=== PATIENT | female | born 1995 | race Caucasian/White ===

== ENCOUNTER 2016-08-28 21:58 | Emergency (ER) | payer MEDICAID ==
[~2016-08-28] VITALS: Ht 160 cm; Wt 88.5 kg
[2016-08-28 22:04] VITALS: BP 127/89
--- NOTE | 2016-08-29 05:32 | NUR ---
Patient ambulated to bed 04.
--- NOTE | 2016-08-29 05:55 | NUR ---
21 Y/O F W/C/O HIGH GLUCOSE OF 400 AT HOME X TODAY. PT STATES IS DIABETIC AND TAKES METFORMING 1000MG. SHE ALSO C/O HEADACHES X 1 WK. ER AWARE.
--- NOTE | 2016-08-29 06:20 | NUR ---
PT RESTING IN BED, VSS. NO S/S OF DISTRESS NOTED AT THE MOMENT. WILL CONT TO MONITOR.
--- NOTE | 2016-08-29 07:21 | NUR ---
Pt report given to ROSA ADAM. Transfer of care at this time.
[2016-08-29 07:28] LABS: BASOPHILS # (AUTO) 0.2 K/uL (0.00-0.22); BASOPHILS % (AUTO) 2.3 % (0.0-2.0); EOSINOPHILS # (AUTO) 0.2 K/uL (0-0.4); EOSINOPHILS % (AUTO) 2.8 % (0.0-4.0); HEMATOCRIT 40.8 % (36-48); HEMOGLOBIN 13.4 g/dL (12.0-16.0); LYMPHOCYTES # (AUTO) 3.7 K/uL (2.5-16.5); LYMPHOCYTES % (AUTO) 42.5 % (20.5-51.1); MEAN CORPUSCULAR HEMOGLOBIN 30 pg (27-31); MEAN CORPUSCULAR HGB CONC 33 g/dL (33-37); MEAN CORPUSCULAR VOLUME 90 fL (80-94); MONOCYTES # (AUTO) 0.4 K/uL (0.8-1.0); MONOCYTES % (AUTO) 4.5 % (1.7-9.3); NEUTROPHILS # (AUTO) 4.3 K/uL (1.8-7.7); NEUTROPHILS % (AUTO) 47.9 % (42.2-75.2); PLATELET COUNT (AUTO) 327 K/uL (140-450); RED BLOOD CELL COUNT(AUTO) 4.55 MIL/uL (4.20-5.40); RED CELL DISTRIBUTION WIDTH 12.3 % (11.6-13.7); WHITE BLOOD COUNT (AUTO) 8.8 K/uL (4.8-10.8)
[2016-08-29] MEDS ORDERED: NACL 0.9% 2,000 ML IV ONE (07:35)
[2016-08-29] MEDS ORDERED: INSULIN HUMAN REGULAR 100 UNITS/ML 10 ML VIAL IVP ONE ×2 (07:35)
--- NOTE | 2016-08-29 08:23 | NUR ---
AAO PT NO C/O PAIN, NO ACUTE DISTRESS NOTED AT THIS TIME, WILL CONTINUE TO MONITOR
[2016-08-29 08:51] LABS: APPEARANCE,URINE CLEAR (CLEAR); BILIRUBIN,URINE NEGATIVE (NEGATIVE); BLOOD, URINE NEGATIVE (NEGATIVE); COLOR,URINE YELLOW (YELLOW); LEUKOCYTE ESTERASE ,URINE NEGATIVE (NEGATIVE); NITRITE, URINE NEGATIVE (NEGATIVE); PH,URINE 5.5 (5.0-9.0); PROTEIN,URINE NEGATIVE (NEGATIVE); UGLUCOSE 3+ (NEGATIVE); UROBILINOGEN,URINE 0.2 EU/dL (0.2 - 1)
[2016-08-29 08:54] LABS: BACTERIA,URINE OCCASSIONAL /HPF (None Seen); RBC,URINE 0-2 /HPF (0-5); SQUAMOUS EPITHELIAL CELL,UR 0-3 (FEW) /LPF (0-3 (FEW)); WBC,URINE 0-2 /HPF (0-5)
[2016-08-29 08:58] LABS: ANION GAP 15.6 (8-16); CALCIUM 9.3 mg/dL (8.5-10.1); CARBON DIOXIDE 26.4 mmol/L (21-32); CREATININE 0.8 mg/dL (0.6-1.3)
[2016-08-29 09:05] LABS: TOTAL BILIRUBIN 0.5 mg/dL (0.0-1.0)
[2016-08-29 09:06] LABS: ALBUMIN 3.7 g/dL (3.4-5.0); THYROID STIMULATING HORMONE 5.54 uIU/mL (0.34-3.74); TOTAL PROTEIN, SERUM 8.3 g/dL (6.4-8.2)
--- NOTE | 2016-08-29 09:09 | NUR ---
PT AMBULATES TO THE RESTROOM
[2016-08-29] MEDS ORDERED: ACETAMINOPHEN EXTRA STRENGTH 500 MG TAB ONE (09:34)
[2016-08-29] MEDS ORDERED: ACETAMINOPHEN EXTRA STRENGTH 500 MG TAB PO ONE (09:35)
[2016-08-29 09:56] VITALS: BP 118/72
== END 2016-08-29 09:56 | disposition home or self-care (01) ==
LOC: MED 21:58
DX: R51 Headache (principal); E11.9 Type 2 diabetes mellitus without complications
CPT/HCPCS: 36415; 80053; 81001; 81025; 82009; 82948; 84443; 85025; 96361; 96374; 99285; J1815; J7030

== ENCOUNTER 2017-02-28 14:02 | Emergency (ER) | payer OTHER ==
[~2017-02-28] VITALS: Ht 160 cm; Wt 87.1 kg
[2017-02-28 14:17] VITALS: BP 103/54
[2017-02-28] MEDS ORDERED: IBUPROFEN 600 MG TAB ONE (15:28)
--- NOTE | 2017-02-28 17:57 | NUR ---
CALLED TO OF, NO ANSWER
--- NOTE | 2017-03-01 15:15 | NUR ---
late entry---medicated for fever control with ibuprofen
== END 2017-02-28 17:57 | disposition left against medical advice (07) ==
LOC: MED 14:02
DX: R51 Headache (principal); Z53.21 Procedure and treatment not carried out due to patient leaving prior to being seen by health care provider
CPT/HCPCS: 71045; 82948; 99281

== ENCOUNTER 2018-04-05 11:54 | Emergency (ER) | payer MEDICAID, OTHER ==
[~2018-04-05] VITALS: Ht 160 cm; Wt 86.2 kg
[2018-04-05 12:00] VITALS: BP 126/77
--- NOTE | 2018-04-05 12:08 | NUR ---
PATIENT TAKEN TO THE LOBBY
[2018-04-05] MEDS ORDERED: GLIP10TA3 PO (12:14)
[2018-04-05] MEDS ORDERED: METF850T PO (12:14)
--- NOTE | 2018-04-05 12:14 | NUR ---
PATIENT AMBULATED TO BED#1
--- NOTE | 2018-04-05 12:30 | NUR ---
RIGHT LOWER QUAD PAIN RADIATING TO BACK X 3 DAYS. STATES PAINFUL URINATION. HX:DM TAKING METFORMIN AND GLIPIZIDE
[2018-04-05] MEDS ORDERED: NACL 0.9% 1,000 ML IV ONE (13:45)
[2018-04-05] MEDS ORDERED: KETOROLAC 30 MG/ML VIAL IVP ONE (13:45)
[2018-04-05 14:05] LABS: APPEARANCE,URINE SL CLOUDY (CLEAR); BILIRUBIN,URINE NEGATIVE (NEGATIVE); BLOOD, URINE 2+ (NEGATIVE); COLOR,URINE YELLOW (YELLOW); LEUKOCYTE ESTERASE ,URINE 1+ (NEGATIVE); NITRITE, URINE NEGATIVE (NEGATIVE); UGLUCOSE 3+ (NEGATIVE)
[2018-04-05 14:05] LABS: BASOPHILS # (AUTO) 0.1 K/uL (0.00-0.22); BASOPHILS % (AUTO) 0.6 % (0.0-2.0); EOSINOPHILS # (AUTO) 0.1 K/uL (0-0.4); EOSINOPHILS % (AUTO) 1.1 % (0.0-4.0); HEMATOCRIT 41.7 % (36-48); HEMOGLOBIN 13.8 g/dL (12.0-16.0); LYMPHOCYTES # (AUTO) 3.6 K/uL (2.5-16.5); LYMPHOCYTES % (AUTO) 30.6 % (20.5-51.1); MEAN CORPUSCULAR HEMOGLOBIN 30 pg (27-31); MEAN CORPUSCULAR HGB CONC 33 g/dL (33-37); MEAN CORPUSCULAR VOLUME 88.8 fL (80-94); MONOCYTES # (AUTO) 0.6 K/uL (0.8-1.0); MONOCYTES % (AUTO) 5.5 % (1.7-9.3); NEUTROPHILS # (AUTO) 7.2 K/uL (1.8-7.7); NEUTROPHILS % (AUTO) 62.2 % (42.2-75.2); PLATELET COUNT (AUTO) 318 K/uL (140-450); RED BLOOD CELL COUNT(AUTO) 4.69 MIL/uL (4.20-5.40); RED CELL DISTRIBUTION WIDTH 12.9 % (11.6-13.7); WHITE BLOOD COUNT (AUTO) 11.6 K/uL (4.8-10.8)
[2018-04-05 14:14] LABS: ANION GAP 12.8 (8-16); CREATININE 0.8 mg/dL (0.6-1.3); POTASSIUM 3.8 mmol/L (3.5-5.1)
[2018-04-05 14:14] LABS: RBC,URINE 50-80 /HPF (0-5)
[2018-04-05 14:21] LABS: ALBUMIN 3.9 g/dL (3.4-5.0); TOTAL BILIRUBIN 0.8 mg/dL (0.0-1.0)
[2018-04-05] MEDS ORDERED: PHENAZOPYRIDINE 100 MG TAB PO ONE (15:55)
[2018-04-05 16:13] VITALS: BP 126/77
--- NOTE | 2018-04-05 16:13 | NUR ---
Patient discharged with v/s stable. Written and verbal after care instructions given and explained. Patient alert, oriented and verbalized understanding of instructions. Ambulatory with steady gait. All questions addressed prior to discharge. ID band removed. Patient advised to follow up with PMD. Rx of PYRIDIUM, CEPHALEXIN given. Patient educated on indication of medication including possible reaction and side effects. Opportunity to ask questions provided and answered.
== END 2018-04-05 16:13 | disposition home or self-care (01) ==
LOC: MED 11:54
DX: N39.0 Urinary tract infection, site not specified (principal); E11.65 Type 2 diabetes mellitus with hyperglycemia; Z79.84 Long term (current) use of oral hypoglycemic drugs
CPT/HCPCS: 36415; 76705; 76830; 80053; 81001; 81025; 85025; 87086; 87186; 93976; 96361; 96374; 99284; J1885; J7030; Q0092

== ENCOUNTER 2018-07-20 21:16 | Emergency (ER) | payer MEDICAID ==
[~2018-07-20] VITALS: Ht 160 cm; Wt 86.2 kg
[~2018-07-20 21:16] MED LIST: GLIP10TA3 PO; METF850T PO
[2018-07-20 21:26] VITALS: BP 112/60
--- NOTE | 2018-07-20 21:30 | NUR ---
PT AMBULATED TO BED 9. PROVIDED WITH URINE CUP.
--- NOTE | 2018-07-20 21:33 | NUR ---
PATIENT PRESENTS TO ED WITH C/O ABD PAIN X 4 DAYS, PATIENT DENIES ANY DIFFICULTY USING THE RESTROOM. PATIENT STATES EATING INCREASES PAIN . PT DENIES N/V/D; SKIN IS PINK/WARM/DRY; AAOX4 WITH EVEN AND STEADY GAIT; LUNGS CLEAR BL; HR EVEN AND REGULAR; PT DENIES ANY FEVER, CP, SOB, OR COUGH AT THIS TIME; PATIENT STATES PAIN OF 8/10 AT THIS TIME; VSS; PATIENT POSITIONED FOR COMFORT; HOB ELEVATED; BEDRAILS UP X2; BED DOWN. ER MD MADE AWARE OF PT STATUS.
--- NOTE | 2018-07-20 21:55 | NUR ---
DR. GERARDO BEDSIDE EVALUATING PT
[2018-07-20] MEDS ORDERED: KETOROLAC 30 MG/ML VIAL IVP ONE (22:00)
--- NOTE | 2018-07-20 22:06 | NUR ---
ULTRASOUND AT BEDSIDE
[2018-07-20 22:09] LABS: BASOPHILS # (AUTO) 0.1 K/uL (0.00-0.22); BASOPHILS % (AUTO) 0.7 % (0.0-2.0); EOSINOPHILS # (AUTO) 0.2 K/uL (0-0.4); EOSINOPHILS % (AUTO) 2.3 % (0.0-4.0); HEMOGLOBIN 13.8 g/dL (12.0-16.0); LYMPHOCYTES # (AUTO) 3.2 K/uL (2.5-16.5); LYMPHOCYTES % (AUTO) 36.8 % (20.5-51.1); MEAN CORPUSCULAR HEMOGLOBIN 30 pg (27-31); MEAN CORPUSCULAR HGB CONC 34 g/dL (33-37); MEAN CORPUSCULAR VOLUME 89.7 fL (80-94); MONOCYTES # (AUTO) 0.5 K/uL (0.8-1.0); MONOCYTES % (AUTO) 6.3 % (1.7-9.3); NEUTROPHILS # (AUTO) 4.6 K/uL (1.8-7.7); NEUTROPHILS % (AUTO) 53.9 % (42.2-75.2); PLATELET COUNT (AUTO) 313 K/uL (140-450); RED BLOOD CELL COUNT(AUTO) 4.57 MIL/uL (4.20-5.40); RED CELL DISTRIBUTION WIDTH 12.8 % (11.6-13.7); WHITE BLOOD COUNT (AUTO) 8.6 K/uL (4.8-10.8)
[2018-07-20 22:30] LABS: APPEARANCE,URINE CLEAR (CLEAR); BILIRUBIN,URINE NEGATIVE (NEGATIVE); BLOOD, URINE NEGATIVE (NEGATIVE); COLOR,URINE YELLOW (YELLOW); LEUKOCYTE ESTERASE ,URINE NEGATIVE (NEGATIVE); NITRITE, URINE NEGATIVE (NEGATIVE); PH,URINE 5.5 (5.0-9.0); UGLUCOSE 3+ (NEGATIVE)
[2018-07-20] MEDS ORDERED: diphenhydrAMINE 50 MG/ML VIAL IVP ONE (22:40)
[2018-07-20 22:44] LABS: ANION GAP 11.2 (8-16); CARBON DIOXIDE 26.4 mmol/L (21-32); CREATININE 0.7 mg/dL (0.6-1.3); POTASSIUM 3.6 mmol/L (3.5-5.1)
[2018-07-20 22:48] LABS: ALBUMIN 3.6 g/dL (3.4-5.0); TOTAL BILIRUBIN 0.6 mg/dL (0.0-1.0)
[2018-07-20 22:58] LABS: RBC,URINE 0-5 /HPF (0-5); WBC,URINE 0-5 /HPF (0-5)
--- NOTE | 2018-07-20 23:22 | NUR ---
Patient discharged with v/s stable. Written and verbal after care instructions given and explained. Patient alert, oriented and verbalized understanding of instructions. Ambulatory with steady gait. All questions addressed prior to discharge. ID band removed. Patient advised to follow up with PMD. Rx of PREDNISONE, BENADRYL AND MOTRIN given. Patient educated on indication of medication including possible reaction and side effects. Opportunity to ask questions provided and answered.Jorge at bedside, patients will be driving patient home.
--- NOTE | 2018-07-20 23:22 | NUR ---
IV removed, catheter intact and site benign. Applied folded 4x4 gauze and tape to stop bleeding.
[2018-07-20 23:23] VITALS: BP 122/72
== END 2018-07-20 23:22 | disposition home or self-care (01) ==
LOC: MED 21:16
DX: R10.11 Right upper quadrant pain (principal); L29.9 Pruritus, unspecified; R42 Dizziness and giddiness; R30.0 Dysuria; E11.9 Type 2 diabetes mellitus without complications; Z79.84 Long term (current) use of oral hypoglycemic drugs
CPT/HCPCS: 36415; 76705; 80053; 81001; 81025; 82948; 83690; 85025; 96374; 96375; 99284; J1200; J1885; Q0092

== ENCOUNTER 2018-10-20 14:45 | Emergency (ER) | payer MEDICAID ==
[~2018-10-20] VITALS: Ht 160 cm; Wt 83.9 kg
[2018-10-20 14:59] VITALS: BP 121/78
--- NOTE | 2018-10-20 15:05 | NUR ---
PT AMBULATED TO THE [facility] WITH STEADY GAIT.
[2018-10-20] MEDS ORDERED: ACETAMINOPHEN EXTRA STRENGTH 500 MG TAB PO ONE (16:00)
--- NOTE | 2018-10-20 17:05 | NUR ---
PT TO ER BED 3
--- NOTE | 2018-10-20 17:10 | NUR ---
BIB SELF. AAO X4 C/O CONSTANT HEADACHE, DIZZINESS, BLURRED VISION X 3 DAYS. PT STATES SOB AT TIMES. PT DENIES FEVER, N/V/D. PT TOOK IBUPROFEN AT 0800 TODAY WITH NO RELIEF. PT AMBULATED WITH STEADY GAIT.PMH: DM. PATIENT STATES PAIN OF 10/10 AT THIS TIME; PATIENT POSITIONED FOR COMFORT; HOB ELEVATED; BEDRAILS UP X1; BED DOWN. ER MD MADE AWARE OF PT STATUS.
[2018-10-20] MEDS ORDERED: KETOROLAC 30 MG/ML VIAL IVP ONE (17:40)
[2018-10-20] MEDS ORDERED: METOCLOPRAMIDE 10 MG/2 ML INJ VIAL IVP ONE (17:40)
[2018-10-20] MEDS ORDERED: NACL 0.9% 1,000 ML IV ONE (17:40)
--- NOTE | 2018-10-20 19:21 | NUR ---
Pt report given to CHRISTI RN. Transfer of care at this time.
--- NOTE | 2018-10-20 19:40 | NUR ---
NANOTECHNOLOGY TECHNICIAN AT BEDSIDE.
[2018-10-20 19:55] LABS: BASOPHILS # (AUTO) 0.1 K/uL (0.00-0.22); BASOPHILS % (AUTO) 0.6 % (0.0-2.0); EOSINOPHILS # (AUTO) 0.2 K/uL (0-0.4); EOSINOPHILS % (AUTO) 1.3 % (0.0-4.0); HEMOGLOBIN 13.3 g/dL (12.0-16.0); LYMPHOCYTES # (AUTO) 2.6 K/uL (2.5-16.5); LYMPHOCYTES % (AUTO) 23.1 % (20.5-51.1); MEAN CORPUSCULAR HEMOGLOBIN 31 pg (27-31); MEAN CORPUSCULAR HGB CONC 34 g/dL (33-37); MEAN CORPUSCULAR VOLUME 89.7 fL (80-94); MONOCYTES # (AUTO) 0.7 K/uL (0.8-1.0); MONOCYTES % (AUTO) 5.8 % (1.7-9.3); NEUTROPHILS # (AUTO) 7.9 K/uL (1.8-7.7); NEUTROPHILS % (AUTO) 69.2 % (42.2-75.2); PLATELET COUNT (AUTO) 318 K/uL (140-450); RED BLOOD CELL COUNT(AUTO) 4.35 MIL/uL (4.20-5.40); RED CELL DISTRIBUTION WIDTH 12.9 % (11.6-13.7); WHITE BLOOD COUNT (AUTO) 11.4 K/uL (4.8-10.8)
[2018-10-20 20:02] LABS: ANION GAP 14.1 (8-16); CARBON DIOXIDE 24.7 mmol/L (21-32); CREATININE 0.6 mg/dL (0.6-1.3); POTASSIUM 3.8 mmol/L (3.5-5.1)
--- NOTE | 2018-10-20 21:49 | NUR ---
Patient discharged with v/s stable. Written and verbal after care instructions given and explained. Patient alert, oriented and verbalized understanding of instructions. with steady gait. All questions addressed prior to discharge. ID band removed. Patient advised to follow up with PMD. Rx of IMITREX 50MG given. Patient educated on indication of medication including possible reaction and side effects. Opportunity to ask questions provided and answered.
== END 2018-10-20 21:49 | disposition home or self-care (01) ==
LOC: MED 14:45
DX: R51 Headache (principal); H53.149 Visual discomfort, unspecified; R42 Dizziness and giddiness; E11.9 Type 2 diabetes mellitus without complications; F12.10 Cannabis abuse, uncomplicated; Z79.84 Long term (current) use of oral hypoglycemic drugs
CPT/HCPCS: 36415; 80048; 81002; 81025; 82948; 85025; 96361; 96374; 96375; 99283; J1885; J2765; J7030

== ENCOUNTER 2021-10-08 14:58 | Inpatient (IN) | payer MEDICAID, OTHER ==
[~2021-10-08] VITALS: Ht 160 cm; Wt 83.9 kg
[~2021-10-08 14:58] MED LIST changes: +METF-713 PO; -METF850T PO
[2021-10-08 15:07] VITALS: BP 116/74
--- NOTE | 2021-10-08 15:13 | NUR ---
PATIENT AMB TO BED 11.
--- NOTE | 2021-10-08 15:36 | NUR ---
x ray at bedside
--- NOTE | 2021-10-08 15:45 | NUR ---
lab at bedside
[2021-10-08 15:52] LABS: BASOPHILS % (AUTO) 0.3 % (0.0-2.0); EOSINOPHILS # (AUTO) 0.2 K/uL (0-0.4); EOSINOPHILS % (AUTO) 2.3 % (0.0-4.0); HEMATOCRIT 39.1 % (36-48); HEMOGLOBIN 13.3 g/dL (12.0-16.0); LYMPHOCYTES # (AUTO) 3.2 K/uL (2.5-16.5); LYMPHOCYTES % (AUTO) 37.6 % (20.5-51.1); MEAN CORPUSCULAR HEMOGLOBIN 30 pg (27-31); MEAN CORPUSCULAR HGB CONC 34 g/dL (33-37); MEAN CORPUSCULAR VOLUME 88.1 fL (80-94); MONOCYTES # (AUTO) 0.5 K/uL (0.8-1.0); MONOCYTES % (AUTO) 5.6 % (1.7-9.3); NEUTROPHILS # (AUTO) 4.6 K/uL (1.8-7.7); NEUTROPHILS % (AUTO) 54.2 % (42.2-75.2); PLATELET COUNT (AUTO) 344 K/uL (140-450); RED BLOOD CELL COUNT(AUTO) 4.43 MIL/uL (4.20-5.40); RED CELL DISTRIBUTION WIDTH 12.5 % (11.6-13.7); WHITE BLOOD COUNT (AUTO) 8.6 K/uL (4.8-10.8)
[2021-10-08] MEDS ORDERED: cefTRIAXone 1,000 MG VIAL ONE (15:57)
--- NOTE | 2021-10-08 16:00 | NUR ---
26 Y/O FEMALE C/O SWELLING, ERYTHEMA TO LEFT FOOT X 2 DAYS. STATES [place] THE [place] ON WEDN[place] EVENING AND WAS BIT BY INSECT. WAS SEEN AT URGENT CARE YESTERDAY AND WAS GIVEN CIPRO. STATES SHE WOKE UP THIS MORNING WITH INCREASED SWELLING, REDNESS, AND ITCHING. DENIES PAIN AT REST WORSENING WHEN BEARING WEIGHT. TOOK IBUPROFEN WITH RELIEF. LEFT FOOT IS WARM TO TOUCH, RED, AND SWOLLEN. DENIES FEVER, CHILLS, NV, SOB, OR CP. PMH: DIABETES NKA MEDS: GLIPIZIDE, METFORMIN
[2021-10-08 16:06] LABS: ALBUMIN 3.5 g/dL (3.4-5.0); ANION GAP 11.6 (8-16); CARBON DIOXIDE 27.1 mmol/L (21-32); CREATININE 0.6 mg/dL (0.6-1.3); POTASSIUM 3.7 mmol/L (3.5-5.1); TOTAL BILIRUBIN 0.6 mg/dL (0.0-1.0)
[2021-10-08] MEDS ORDERED: NACL 0.9% 1,000 ML IV ONE (16:30)
--- NOTE | 2021-10-08 17:36 | NUR ---
Obtained NOBLE specimen, handed to CPT Bekah at bedside.
[2021-10-08] MEDS ORDERED: METF-346 PO (17:37)
[2021-10-08] MEDS ORDERED: GLIP5TAB14 PO (17:39)
[2021-10-08] MEDS ORDERED: ONDANSETRON 4 MG/2 ML VIAL IVP PRN (18:55)
[2021-10-08] MEDS ORDERED: MORPHINE SULFATE 2 MG/ML SYR IVP PRN (18:55)
[2021-10-08] MEDS ORDERED: ACETAMINOPHEN 325 MG TAB PO PRN (18:55)
[2021-10-08] MEDS ORDERED: VANCOMYCIN PER PHARMACY MC PRN (19:00)
[2021-10-08] MEDS ORDERED: DEXTROSE 50% 50 ML SYR IVP PRN (19:05)
--- NOTE | 2021-10-08 19:23 | NUR ---
Pt report given to ROSA Leon. Transfer of care at this time.
[2021-10-08] MEDS: NACL 0.9% 1,000 ML IV SCH (19:44)
[2021-10-08] MEDS ORDERED: VANCOMYCIN 1GM/DEXT 5% PREMIX 200 ML IV ONE (20:00)
[2021-10-08] MEDS ORDERED: VANCOMYCIN 1,000 MG VIAL ONE (20:25)
[2021-10-08] MEDS: BLOOD GLUCOSE MONITORING 1 DEV DEV FS SCH (20:39)
[2021-10-08] MEDS: INSULIN LISPRO SLIDING SCALE 100 UNITS/ML VIAL SUBQ PRN (20:47)
--- NOTE | 2021-10-08 21:10 | NUR ---
PT WAS ADMITTED TO [facility] [place] FROM ER WITH DIAGNOSIS OF LEFT FOOT CELLULITIS. PT IS AOX4, AMBULATORY, ABLE TO VERBALIZE NEEDS AND ABLE TO FOLLOW COMMANDS. PT IS ON ROOM AIR AND ON CCHO 60 GRAMS DIET. PT HAS IV ON LEFT AC GAUGE 20 RUNNING WITH VANCOMYCIN AT 135ML/HR. PT SKIN IS INTACT AND HAS SWELLING OF LEFT FOOT. PT ORIENTED TO HOSPITAL, ROOM, BED BUTTONS, AND CALL LIGHT. ALL SAFETY MEASURES IMPLEMENTED. BED WHEELS ON LOCKED AND BED IN LOW POSITION.
--- NOTE | 2021-10-08 21:16 | NUR ---
Patient will be admitted to care of DR CHUA. Admited to TELE. Will go to room 106B. Belongings list completed. Report to ROSA GRIJALVA.
--- NOTE | 2021-10-08 21:53 | NUR ---
PT COMPLAIN OF LEFT FOOT PAIN WITH THE PAIN SCALE OF 3. PRN PAIN MEDICATION WAS GIVEN TO PT PER MD ORDER. PT TOLERATED IT WELL. ALL SAFETY MEASURES IMPLEMENTED. BED WHEELS ON LOCKED AND BED IN LOW POSITION.
--- NOTE | 2021-10-08 23:30 | NUR ---
PT REQUESTED FOR FOOD BECAUSE SHE HASNT BEEN EATING. TUNA SANDWICH AND JELLO WAS GIVEN TO PT. ALL SAFETY MEASURES IMPLEMENTED. BED WHEELS ON LOCKED AND BED IN LOW POSITION.
[2021-10-09] VITALS: BP 118/69
--- NOTE | 2021-10-09 01:00 | NUR ---
PT IS ON SLEEP. CHEST RISE AND FALL SYMMETRICALLY NOTED. RESPIRATION ARE EVEN AND UNLABORED. NO S/S OF RESPIRATORY DISTRESS NOTED. ALL SAFETY MEASURES IMPLEMENTED. BED WHEELS ON LOCKED, BED IN LOW POSITION AND CALL LIGHT WITHIN REACH.
--- NOTE | 2021-10-09 03:15 | NUR ---
CHECKED THE PT. SHE'S STILL ON SLEEP. CHEST RISE AND FALL SYMMETRICALLY NOTED. RESPIRATION ARE EVEN AND UNLABORED. NO S/S OF RESPIRATORY DISTRESS NOTED. ALL SAFETY MEASURES IMPLEMENTED. BED WHEELS ON LOCKED, BED IN LOW POSITION AND CALL LIGHT WITHIN REACH.
[2021-10-09 04:00] VITALS: BP 105/71
--- NOTE | 2021-10-09 04:00 | NUR ---
PT IS LYING ON BED STILL SLEEPING WITH THE VS BP-105/71, T-97.2 P-74, RR-18 SATING AT 95% WITH NORMAL SINUS RHYTHM. RESPIRATION ARE EVEN AND UNLABORED. NO S/S OF RESPIRATORY DISTRESS NOTED. ALL SAFETY MEASURES IMPLEMENTED. BED WHEELS ON LOCKED, BED IN LOW POSITION AND CALL LIGHT WITHIN REACH.
[2021-10-09] MEDS: BLOOD GLUCOSE MONITORING 1 DEV DEV FS SCH ×4 (06:37→21:26)
[2021-10-09] MEDS: INSULIN LISPRO SLIDING SCALE 100 UNITS/ML VIAL SUBQ PRN ×4 (06:38→21:25)
--- NOTE | 2021-10-09 06:38 | NUR ---
PT BLOOD GLUCOSE IS 301. HUMALOG INSULIN 8 UNITS WAS GIVEN TO PT PER MD ORDER. PT TOLERATED IT WELL. ALL SAFETY MEASURES IMPLEMENTED. BED WHEELS ON LOCKED, BED IN LOW POSITION AND CALL LIGHT WITHIN REACH.
[2021-10-09 07:14] LABS: BASOPHILS % (AUTO) 0.4 % (0.0-2.0); EOSINOPHILS # (AUTO) 0.3 K/uL (0-0.4); HEMATOCRIT 36.6 % (36-48); HEMOGLOBIN 12.5 g/dL (12.0-16.0); LYMPHOCYTES # (AUTO) 3.8 K/uL (2.5-16.5); LYMPHOCYTES % (AUTO) 42.9 % (20.5-51.1); MEAN CORPUSCULAR HEMOGLOBIN 30 pg (27-31); MEAN CORPUSCULAR HGB CONC 34 g/dL (33-37); MEAN CORPUSCULAR VOLUME 88.9 fL (80-94); MONOCYTES # (AUTO) 0.5 K/uL (0.8-1.0); MONOCYTES % (AUTO) 5.4 % (1.7-9.3); NEUTROPHILS # (AUTO) 4.3 K/uL (1.8-7.7); NEUTROPHILS % (AUTO) 48.3 % (42.2-75.2); PLATELET COUNT (AUTO) 305 K/uL (140-450); RED BLOOD CELL COUNT(AUTO) 4.12 MIL/uL (4.20-5.40); RED CELL DISTRIBUTION WIDTH 12.9 % (11.6-13.7); WHITE BLOOD COUNT (AUTO) 8.9 K/uL (4.8-10.8)
[2021-10-09 07:19] LABS: CREATININE 0.5 mg/dL (0.6-1.3)
[2021-10-09 07:20] LABS: MAGNESIUM 1.4 mg/dL (1.8-2.4); PHOSPHORUS 3.7 mg/dL (2.5-4.9)
--- NOTE | 2021-10-09 07:22 | NUR ---
PT IS STABLE. ENDORSED PT TO MORNING SHIFT NURSE FOR CONTINUITY OF CARE.
--- NOTE | 2021-10-09 07:22 | NUR ---
RECEIVED REPORT FROM NIGHTSVTFT NURSE VALENTINE FOR CONTINUITY OF CARE. PLAN OF CARE DISCUSSED. PT CURRENTLY AWAKE, A/OX4. BREATHING IS EVEN, REGULAR, AND UNLABORED ON ROOM AIR. PT IS CONTINENT OF THE BOWEL AND BLADDER. PT IS AMBULATORY WITH BRP. REDNESS AND SWELLING NOTED ON LEFT FOOT. NO PAIN OR DISTRESS NOTED AT THIS TIME.
[2021-10-09 08:00] VITALS: BP 108/72
--- NOTE | 2021-10-09 08:17 | NUR ---
MORNING BMP SHOWED MAGNESIUM LEVEL AT 1.4, NO CURRENT PRN'S ON ORDER FOR SUPPLEMENTATION. NOTIFIED MD, AWAITING CALLBACK.
[2021-10-09] MEDS ORDERED: MAG SULF 2000 MG/WATER PREMIX 100 ML IV SCH (09:00)
[2021-10-09] MEDS: NACL 0.9% 1,000 ML IV SCH ×2 (09:02→21:35)
[2021-10-09] MEDS: VANCOMYCIN 1,000 MG in DEXTROSE 5% 250 ML IV SCH ×2 (09:16→17:00)
[2021-10-09 12:00] VITALS: BP 104/71
--- NOTE | 2021-10-09 14:28 | NUR ---
DC PLANNING SW MET WITH PATIENT AT BEDSIDE TO COMPLETE ASSESSMENT. PATIENT REPORTS RESIDING WITH HER FAMILY ( & 4 CHILDREN) AT THE ADDRESS LISTED.PATIENT IDENTIFIES EMERGENCY CONTACT AND MDM COSMO WHITNEY(MOTHER)[phone]. PT DENIES HAVING AD IN PLACE AND ACCEPTED AD PACKET OFFERED BY REZA. PATIENT REPORTS MEETING WITH PCP EVERY THREE MONTHS; LAST VISIT AUGUST 2021. PT REPORTS MEDICATION COMPLIANCE AND DENIES BARRIERS IN ACCESSING NEEDED MEDICATIONS. PATIENT REPORTS RECEIVING HER MEDICATION FROM [facility] ON [address] IN [place]. PATIENT REPORTS [employer] S[employer]. PT DENIES HH AND DIALYSIS TX. PT DENIES MH AND SA HX. DC PLAN IS FOR PATIENT TO RETURN HOME WITH PROVIDING TRANSPORTATION AND CARE, IF REQUIRED. [facility] INQUIRED ON ADDITIONAL RESOURCES NEEDED, PATIENT DECLINED AT THIS TIME. Addendum: 10/13/21 at 1145 by Fausto FREEMAN [facility] OUTREACHED TO PATIENTS PCP OFFICE AT [phone]. [facility] SPOKE WITH [facility] SCHEDULED FOR 10/16/21 AT 11:45 AM WITH LONDON TILLMAN, AT [address] [address]. PATIENT WAS PROVIDED WITH APPT DETAILS THAT INCLUDED; DATE, TIME, ADDRESS, PHONE NUMBER AND DR. PATIENT ACCEPTED AND APPRECIATIVE
--- NOTE | 2021-10-09 15:03 | NUR ---
PATIENT HAS BEEN SCREENED AND CATEGORIZED MODERATE NUTRITION RISK. PATIENT WILL BE SEEN WITHIN 3-5 DAYS OF ADMISSION. GIUSEPPE [address]
[2021-10-09 16:00] VITALS: BP 113/76
[2021-10-09] MEDS: IBUPROFEN 600 MG TAB PO SCH (19:04)
--- NOTE | 2021-10-09 19:20 | NUR ---
ENDORSED PT TO NIGHTSHIFT NURSE ALYSSA FOR CONTINUITY OF CARE. PT IN STABLE CONDITION.
--- NOTE | 2021-10-09 19:30 | NUR ---
RECEIVED PT FROM AM NURSE FOR CONTINUITY OF CARE. PT IS STABLE
--- NOTE | 2021-10-09 21:30 | NUR ---
ALL MEDS GIVEN AT THIS TIME,NO ADVERSE REACTIONS NOTED
[2021-10-10] MEDS: VANCOMYCIN 1,000 MG in DEXTROSE 5% 250 ML IV SCH ×2 (02:25→12:00)
--- NOTE | 2021-10-10 02:30 | NUR ---
INSERTED NEW IV ON LEFT HAND 24 G, INTACT AND PATENT
--- NOTE | 2021-10-10 03:20 | NUR ---
RECEIVED REPORT FROM NURSE SHAH FOR CONTINUITY OF CARE.
[2021-10-10 04:00] VITALS: BP 106/67
[2021-10-10] MEDS: INSULIN LISPRO SLIDING SCALE 100 UNITS/ML VIAL SUBQ PRN ×2 (06:33→11:48)
[2021-10-10] MEDS: BLOOD GLUCOSE MONITORING 1 DEV DEV FS SCH ×2 (06:40→11:48)
--- NOTE | 2021-10-10 07:20 | NUR ---
RECEIVED BEDSIDE REPORT FROM WEAPONS OFFICER NURSE FOR CONTINUITY OF CARE. PATIENT IS AWAKE, ALERT, AND COOPERATIVE. RESPIRATION EVEN UNLABORED ON ROOM AIR. NO DISTRESS NOTED. SKIN IS WARM AND DRY. LEFT FOOT CELLULITIS NOTED CLOSED AND MILD SWELLING. IV INTACT AND PATENT.PLAN OF CARE DISCUSSED. ALL SAFETY MEASURES IN PLACE. BED IS AT LOW POSITION,. CALL LIGHT WITHIN REACH. WILL CONTINUE TO MONITOR.
--- NOTE | 2021-10-10 07:26 | NUR ---
PT IS STABLE. NO ACUTE THROUGHOUT THE NIGHT. NO S/SX OF DISTRESS. ALL NEEDS ATTENDED. NO COMPLAINS OF PAIN AT THIS MOMENT. ALL PRECAUTIONS IN PLACE. CALL LIGHT WITHIN REACH. WILL ENDORSE TO AM SHIFT NURSE.
[2021-10-10] MEDS: IBUPROFEN 600 MG TAB PO SCH ×2 (09:16→12:00)
--- NOTE | 2021-10-10 09:30 | NUR ---
ALL SCHEDULED MEDS WERE GIVEN PER ORDER. WILL CONTINUE TO MONITOR
--- NOTE | 2021-10-10 09:46 | NUR ---
AWAITING FOR VANCO TROUGH RESULTS
--- NOTE | 2021-10-10 10:58 | NUR ---
MADE ROUNDS PATIENT IS AWAKE, NO DISTRESS NOTED.
[2021-10-10] MEDS: NACL 0.9% 1,000 ML IV SCH (11:06)
[2021-10-10] MEDS ORDERED: AMOX1TAB8 PO (11:18)
[2021-10-10] MEDS ORDERED: IBUP-2213 PO (11:18)
--- NOTE | 2021-10-10 11:20 | NUR ---
ENDORSED PATIENT TO NURSE FOR CONTINUITY OF CARE. STILL WAITING FOR CONNIE WRAY, CALLED LAB ALREADY. STILL PENDING
--- NOTE | 2021-10-10 12:19 | NUR ---
Assumed care of pt. Pt getting ready for discharge home.
--- NOTE | 2021-10-10 13:06 | NUR ---
Discharge Patient given discharge instructions and prescriptions. Removed IV 24G from left hand, catheter tip intact, bleeding controlled. Patient ambulatory with steady gait for discharge home. All belongings sent with patient.
== END 2021-10-10 13:59 | disposition home or self-care (01) | DRG 383 ==
LOC: MED 14:58 → MTU 18:57
PROVIDERS: ADMIT Internal Medicine; ATTEND Internal Medicine
DX: L03.116 Cellulitis of left lower limb (principal); E83.51 Hypocalcemia; E83.42 Hypomagnesemia; E11.9 Type 2 diabetes mellitus without complications; Z20.822 Contact with and (suspected) exposure to COVID-19
CPT/HCPCS: 36415; 73630; 80048; 80053; 80202; 82948; 83036; 83735; 84100; 85025; 85651; 86140; 87081; 96361; 96365; 96367; 99285; J0696; J1815; J3370; J3475; J7060

== ENCOUNTER 2022-08-19 16:42 | Emergency (ER) | payer MEDICAID, OTHER ==
[~2022-08-19] VITALS: Ht 160 cm; Wt 80.7 kg
[~2022-08-19 16:42] MED LIST changes: +AMOX1TAB8 PO; -GLIP10TA3 PO; +GLIP5TAB14 PO; +IBUP-2213 PO; +METF-346 PO; -METF-713 PO
[2022-08-19 16:52] VITALS: BP 128/86; PULSE 88; RESP 16; TEMP 98.4; O2SAT 99
[2022-08-19] MEDS ORDERED: KETOROLAC 15 MG/ML VIAL IVP ONE (17:10)
[2022-08-19] MEDS ORDERED: LORazepam 2 MG/ML VIAL IVP ONE (17:10)
--- NOTE | 2022-08-19 17:20 | NUR ---
PATIENT PRESENTS TO ED WITH LFT SIDE FACIAL TIGHTNESS. PT STATES SHE HAD FACIAL TIGHTNESS FOR TWO WEEKS. DENIES N/V/D; SKIN IS PINK/WARM/DRY; AAOX4 WITH EVEN AND STEADY GAIT; LUNGS CLEAR BL; HR EVEN AND REGULAR; PT DENIES ANY FEVER, CP, SOB, OR COUGH AT THIS TIME; PATIENT STATES PAIN OF 5/10 AT THIS TIME; VSS; PATIENT POSITIONED FOR COMFORT; HOB ELEVATED; BEDRAILS UP X2; BED DOWN. ER MD MADE AWARE OF PT STATUS.
[2022-08-19 17:25] LABS: BASOPHILS # (AUTO) 0.1 K/uL (0.00-0.22); BASOPHILS % (AUTO) 0.9 % (0.0-2.0); EOSINOPHILS # (AUTO) 0.2 K/uL (0-0.4); EOSINOPHILS % (AUTO) 1.6 % (0.0-4.0); HEMATOCRIT 40.9 % (36-48); HEMOGLOBIN 14.3 g/dL (12.0-16.0); LYMPHOCYTES # (AUTO) 4.6 K/uL (2.5-16.5); LYMPHOCYTES % (AUTO) 44.3 % (20.5-51.1); MEAN CORPUSCULAR HEMOGLOBIN 31 pg (27-31); MEAN CORPUSCULAR HGB CONC 35 g/dL (33-37); MEAN CORPUSCULAR VOLUME 87.9 fL (80-94); MONOCYTES # (AUTO) 0.7 K/uL (0.8-1.0); MONOCYTES % (AUTO) 6.7 % (1.7-9.3); NEUTROPHILS # (AUTO) 4.8 K/uL (1.8-7.7); NEUTROPHILS % (AUTO) 46.5 % (42.2-75.2); PLATELET COUNT (AUTO) 322 K/uL (140-450); RED BLOOD CELL COUNT(AUTO) 4.66 MIL/uL (4.20-5.40); RED CELL DISTRIBUTION WIDTH 13.3 % (11.6-13.7); WHITE BLOOD COUNT (AUTO) 10.3 K/uL (4.8-10.8)
[2022-08-19 17:46] LABS: ALBUMIN 4.1 g/dL (3.4-5.0); ANION GAP 15.1 (8-16); ASPARTATE AMINOTRANSFERASE 18 U/L (15-37); CARBON DIOXIDE 27.2 mmol/L (21-32); CHLORIDE 98 mmol/L (98-107); CREATININE 0.6 mg/dL (0.6-1.3); GFR ARICAN-AMERICAN 152 mL/min (>90); GLUCOSE 299 mg/dL (74-106); POTASSIUM 3.3 mmol/L (3.5-5.1); SODIUM SERUM 137 mmol/L (136-145); TOTAL BILIRUBIN 0.7 mg/dL (0.0-1.0); UREA NITROGEN, BLOOD 7 mg/dL (7-18)
--- NOTE | 2022-08-19 18:02 | NUR ---
pt medicated per MD orders. verbalized no known allergies.
[2022-08-19] MEDS ORDERED: IBUP-2213 PO (18:32)
--- NOTE | 2022-08-19 18:50 | NUR ---
PT HAS BEEN MEDICATED PER PROVIDERS ORDERS.
[2022-08-19 18:55] VITALS: O2SAT 99
--- NOTE | 2022-08-19 19:03 | NUR ---
Patient discharged with v/s stable. Written and verbal after care instructions given and explained. Patient verbalized understanding. Ambulatory with steady gait. All questions addressed prior to discharge. Advised to follow up with PMD.
[2022-08-19 19:05] VITALS: BP 130/87; PULSE 89; RESP 16; TEMP 99.7
== END 2022-08-19 19:03 | disposition home or self-care (01) ==
LOC: MED 16:42
DX: R07.9 Chest pain, unspecified (principal); E11.9 Type 2 diabetes mellitus without complications; Z79.4 Long term (current) use of insulin; Z79.899 Other long term (current) drug therapy
CPT/HCPCS: 36415; 71045; 80053; 81025; 84484; 85025; 93005; 96374; 96375; 99285; J1885; J2060

== ENCOUNTER 2023-01-11 09:14 | Emergency (ER) | payer MEDICAID ==
[~2023-01-11] VITALS: Ht 160 cm; Wt 78.6 kg
[2023-01-11 09:40] VITALS: BP 112/74; PULSE 94; RESP 17; TEMP 97.5; O2SAT 100
[2023-01-11] MEDS ORDERED: KETOROLAC 30 MG/ML VIAL IM ONE (10:10)
[2023-01-11 10:21] LABS: BASOPHILS # (AUTO) 0.1 K/uL (0.00-0.22); BASOPHILS % (AUTO) 0.6 % (0.0-2.0); EOSINOPHILS # (AUTO) 0.2 K/uL (0-0.4); EOSINOPHILS % (AUTO) 1.5 % (0.0-4.0); HEMATOCRIT 41.1 % (36-48); HEMOGLOBIN 13.9 g/dL (12.0-16.0); LYMPHOCYTES # (AUTO) 3.3 K/uL (2.5-16.5); LYMPHOCYTES % (AUTO) 29.5 % (20.5-51.1); MEAN CORPUSCULAR HEMOGLOBIN 30 pg (27-31); MEAN CORPUSCULAR HGB CONC 34 g/dL (33-37); MEAN CORPUSCULAR VOLUME 89.2 fL (80-94); MONOCYTES # (AUTO) 0.5 K/uL (0.8-1.0); MONOCYTES % (AUTO) 4.1 % (1.7-9.3); NEUTROPHILS # (AUTO) 7.1 K/uL (1.8-7.7); NEUTROPHILS % (AUTO) 64.3 % (42.2-75.2); PLATELET COUNT (AUTO) 397 K/uL (140-450); RED CELL DISTRIBUTION WIDTH 12.8 % (11.6-13.7); WHITE BLOOD COUNT (AUTO) 11.1 K/uL (4.8-10.8)
[2023-01-11 10:26] LABS: BILIRUBIN,URINE NEGATIVE (NEGATIVE); BLOOD, URINE NEGATIVE (NEGATIVE); COLOR,URINE YELLOW (YELLOW); LEUKOCYTE ESTERASE ,URINE 1+ (NEGATIVE); NITRITE, URINE NEGATIVE (NEGATIVE); PROTEIN,URINE NEGATIVE (NEGATIVE); UGLUCOSE 3+ (NEGATIVE); UROBILINOGEN,URINE 0.2 EU/dL (0.2 - 1)
[2023-01-11 10:43] LABS: APPEARANCE,URINE HAZY (CLEAR); BACTERIA,URINE FEW /HPF (None Seen); RBC,URINE 0-5 /HPF (0-5); SQUAMOUS EPITHELIAL CELL,UR 4-10 (MOD) /LPF (0-3 (FEW))
[2023-01-11 10:44] LABS: ALBUMIN 3.7 g/dL (3.4-5.0); ANION GAP 14.4 (8-16); CARBON DIOXIDE 26.3 mmol/L (21-32); CREATININE 0.7 mg/dL (0.6-1.3); POTASSIUM 3.7 mmol/L (3.5-5.1); TOTAL BILIRUBIN 0.8 mg/dL (0.0-1.0); TOTAL PROTEIN, SERUM 7.6 g/dL (6.4-8.2)
[2023-01-11 11:14] LABS: YEAST,URINE Rare /HPF (None Seen)
[2023-01-11] MEDS ORDERED: CEPH-588 PO (12:45)
[2023-01-11] MEDS ORDERED: IBUP-2213 PO (12:45)
[2023-01-12] MEDS ORDERED: MIRABULK PO (11:28)
[2023-01-12] MEDS ORDERED: MAG355OR2 PO (11:28)
[2023-01-12] MEDS ORDERED: IBUP-2213 PO (11:28)
[2023-01-12] MEDS ORDERED: FAMO-90 PO (11:30)
== END 2023-01-11 13:22 | disposition home or self-care (01) ==
LOC: MED 09:14
DX: N39.0 Urinary tract infection, site not specified (principal); K76.0 Fatty (change of) liver, not elsewhere classified; R73.9 Hyperglycemia, unspecified; Z79.899 Other long term (current) drug therapy; Z79.1 Long term (current) use of non-steroidal anti-inflammatories (NSAID); Z79.2 Long term (current) use of antibiotics
CPT/HCPCS: 36415; 76705; 80053; 81001; 81025; 83690; 85025; 87086; 96372; 99285; J1885; Q0092

== ENCOUNTER 2023-01-12 07:49 | Emergency (ER) | payer MEDICAID ==
[~2023-01-12] VITALS: Ht 160 cm; Wt 76.7 kg
[~2023-01-12 07:49] MED LIST changes: +CEPH-588 PO
[2023-01-12 08:06] VITALS: BP 128/74; PULSE 87; RESP 20; TEMP 98; O2SAT 99
[2023-01-12] MEDS ORDERED: MORPHINE SULFATE 2 MG/ML SYR IVP STA (08:47)
[2023-01-12] MEDS ORDERED: KETOROLAC 30 MG/ML VIAL IVP ONE (08:50)
[2023-01-12 09:15] LABS: BASOPHILS # (AUTO) 0.1 K/uL (0.00-0.22); EOSINOPHILS # (AUTO) 0.1 K/uL (0-0.4); EOSINOPHILS % (AUTO) 1.5 % (0.0-4.0); HEMATOCRIT 41.3 % (36-48); LYMPHOCYTES # (AUTO) 3.2 K/uL (2.5-16.5); LYMPHOCYTES % (AUTO) 39.4 % (20.5-51.1); MEAN CORPUSCULAR HEMOGLOBIN 30 pg (27-31); MEAN CORPUSCULAR HGB CONC 34 g/dL (33-37); MEAN CORPUSCULAR VOLUME 89.6 fL (80-94); MONOCYTES # (AUTO) 0.5 K/uL (0.8-1.0); MONOCYTES % (AUTO) 5.7 % (1.7-9.3); NEUTROPHILS # (AUTO) 4.3 K/uL (1.8-7.7); NEUTROPHILS % (AUTO) 52.4 % (42.2-75.2); PLATELET COUNT (AUTO) 372 K/uL (140-450); RED BLOOD CELL COUNT(AUTO) 4.61 MIL/uL (4.20-5.40); RED CELL DISTRIBUTION WIDTH 12.7 % (11.6-13.7); WHITE BLOOD COUNT (AUTO) 8.2 K/uL (4.8-10.8)
[2023-01-12 09:34] LABS: ALBUMIN 3.5 g/dL (3.4-5.0); CALCIUM 8.7 mg/dL (8.5-10.1); CARBON DIOXIDE 27.5 mmol/L (21-32); CREATININE 0.7 mg/dL (0.6-1.3); POTASSIUM 4.5 mmol/L (3.5-5.1); TOTAL BILIRUBIN 0.8 mg/dL (0.0-1.0); TOTAL PROTEIN, SERUM 7.3 g/dL (6.4-8.2)
[2023-01-12] MEDS ORDERED: IBUP-2213 PO (11:28)
[2023-01-12] MEDS ORDERED: MIRABULK PO (11:28)
[2023-01-12] MEDS ORDERED: MAG355OR2 PO (11:28)
[2023-01-12] MEDS ORDERED: FAMO-90 PO (11:30)
[2023-01-12 11:45] VITALS: BP 95/69; PULSE 70; RESP 18; TEMP 36.61404; O2SAT 99
== END 2023-01-12 11:45 | disposition home or self-care (01) ==
LOC: MED 07:49
DX: K76.0 Fatty (change of) liver, not elsewhere classified (principal); K59.00 Constipation, unspecified; Z79.899 Other long term (current) drug therapy
CPT/HCPCS: 36415; 74177; 80053; 81025; 83690; 85025; 96374; 96375; 99285; J1885; J2270; Q9967

== ENCOUNTER 2023-04-20 10:54 | Emergency (ER) | payer MEDICAID ==
[~2023-04-20] VITALS: Ht 157.5 cm; Wt 72.6 kg
[~2023-04-20 10:54] MED LIST changes: +FAMO-90 PO; -GLIP5TAB14 PO; +GLIP5TAB24 PO; +MAG355OR2 PO; +MIRABULK PO
[2023-04-20 10:56] VITALS: BP 105/66; PULSE 79; RESP 20; TEMP 98.2; O2SAT 99
== END 2023-04-20 13:19 | disposition left against medical advice (07) ==
LOC: MED 10:54
DX: R07.89 Other chest pain (principal); R20.0 Anesthesia of skin; Z53.21 Procedure and treatment not carried out due to patient leaving prior to being seen by health care provider
CPT/HCPCS: 93005; 99281

== ENCOUNTER 2023-08-25 22:38 | Emergency (ER) | payer MEDICAID, OTHER ==
[~2023-08-25] VITALS: Ht 160 cm; Wt 77.1 kg
[2023-08-25 23:05] VITALS: BP 119/86; PULSE 82; RESP 16; TEMP 99.3; O2SAT 100
[2023-08-26] MEDS: KETOROLAC 30 MG/ML VIAL IM ONE (02:33)
[2023-08-26] MEDS: ACETAMINOPHEN EXTRA STRENGTH 500 MG TAB PO ONE (02:45)
== END 2023-08-26 03:07 | disposition home or self-care (01) ==
LOC: MED 22:38
DX: S82.892A Other fracture of left lower leg, initial encounter for closed fracture (principal); E11.9 Type 2 diabetes mellitus without complications; Z79.84 Long term (current) use of oral hypoglycemic drugs; Z79.1 Long term (current) use of non-steroidal anti-inflammatories (NSAID); Z79.2 Long term (current) use of antibiotics; Z79.899 Other long term (current) drug therapy; X58.XXXA Exposure to other specified factors, initial encounter; Y93.89 Activity, other specified; Y92.89 Other specified places as the place of occurrence of the external cause; Y99.8 Other external cause status
CPT/HCPCS: 29515; 96372; 99283; J1885